=== PATIENT | male | born 1980 | race Caucasian/White ===

== ENCOUNTER 2021-03-13 10:42 | Emergency (ER) | payer SELFPAY ==
[2021-03-13 12:46] LABS: CORONAVIRUS COVID-19 NAA POSITIVE (NEGATIVE)
--- NOTE | 2021-03-13 13:40 | EDM.PDOC ---
ED HPI GENERAL MEDICAL PROBLEM - General Chief Complaint: Respiratory Problem Stated Complaint: EXPOSED TO COVID / FEELS SICK NO TEMP Time Seen by Provider: 03/13/21 11:55 Source of Information: Reports: Patient History Limitations: Reports: No Limitations - History of Present Illness INITIAL COMMENTS - FREE TEXT/NARRATIVE: onset sx W[employer] working next to coworker who tested positive day prior. Sore throat, fatigue congestion chilld - Related Data Allergies Allergy/AdvReac Type Severity Reaction Status Date / Time erythromycin base Allergy Other Verified 03/13/21 12:55 Home Meds: Home Meds Cyanocobalamin (Vitamin B-12) [Vitamin B12] 2,500 mcg PO DAILY 03/13/21 [History] Ibuprofen [Motrin] 400 mg PO QID PRN 03/13/21 [History] Solsberry-3S/DHA/Epa/Fish Oil/D3 [Fish Oil Gummies] 1 each PO DAILY 03/13/21 [History] Vit C/Ascorb Sod/Multivit-Min [Emergen-C 500 mg Chewable Tab] 500 mg PO DAILY 03/13/21 [History] Past Medical History Cardiovascular History: Reports: None Respiratory History: Reports: None Gastrointestinal History: Reports: None Genitourinary History: Reports: None Musculoskeletal History: Reports: None Neurological History: Reports: None Psychiatric History: Reports: None Endocrine/Metabolic History: Reports: None Hematologic History: Reports: None Immunologic History: Reports: None Oncologic (Cancer) History: Reports: None Dermatologic History: Reports: None - Infectious Disease History Infectious Disease History: Reports: Novel Coronavirus - Past Surgical History HEENT Surgical History: Reports: Adenoidectomy, Tonsillectomy GI Surgical History: Reports: Appendectomy Social & Family History - Family History Family Medical History: No Pertinent Family History - Tobacco Use Tobacco Use Status *Q: Never Tobacco User Second Hand Smoke Exposure: No - Caffeine Use Caffeine Use: Reports: Coffee, Energy Drinks - Recreational Drug Use Recreational Drug Use: Yes Recreational Drug Type: Reports: Marijuana/Hashish Recreational Drug Use Frequency: Daily ED ROS GENERAL - Review of Systems Review Of Systems: Comprehensive ROS is negative, except as noted in HPI. Constitutional: Reports: Chills, Malaise, Weakness, Fatigue, Decreased Appetite HEENT: Reports: No Symptoms Respiratory: Reports: No Symptoms Cardiovascular: Reports: No Symptoms GI/Abdominal: Reports: Anorexia, Nausea. Denies: Abdominal Pain : Reports: No Symptoms Musculoskeletal: Reports: Other (generalized body aches) Skin: Reports: No Symptoms Psychiatric: Reports: No Symptoms ED EXAM, GENERAL - Physical Exam Exam: See Below Exam Limited By: No Limitations General Appearance: Alert, Anxious, Mild Distress Eye Exam: Bilateral Eye: PERRL Ears: Normal External Exam, Hearing Grossly Normal Nose: Normal Inspection Throat/Mouth: Normal Inspection, Normal Oropharynx Head: Atraumatic, Normocephalic Neck: Normal Inspection Respiratory/Chest: No Respiratory Distress, Lungs Clear, Normal Breath Sounds Cardiovascular: Normal Peripheral Pulses, Regular Rate, Rhythm GI/Abdominal: Normal Bowel Sounds, Soft Back Exam: Normal Inspection Extremities: Normal Inspection, Normal Range of Motion, Non-Tender Neurological: Alert, Oriented, CN II-XII Intact, Normal Cognition, Normal Gait Psychiatric: Normal Affect, Normal Mood Skin Exam: Warm, Dry, Intact, Normal Color, No Rash Course - Vital Signs Last Recorded V/S: Last Vital Signs Temp 98.1 F 03/13/21 11:41 Pulse 76 03/13/21 11:41 Resp 20 03/13/21 11:41 BP 164/99 H 03/13/21 11:41 Pulse Ox 99 03/13/21 11:41 - Orders/Labs/Meds Labs: Laboratory Tests 03/13/21 Range/Units 11:40 Influenza Type A RNA Negative (NEGATIVE) Influenza Type B RNA Negative (NEGATIVE) SARS-CoV-2 RNA (BECKY) Positive H (NEGATIVE) Departure - Departure Time of Disposition: 13:35 Disposition: Home, Self-Care 01 Condition: Good Clinical Impression: COVID - Discharge Information *PRESCRIPTION DRUG MONITORING PROGRAM REVIEWED*: No *COPY OF PRESCRIPTION DRUG MONITORING REPORT IN PATIENT AMELIA: No Instructions: COVID-19 Frequently Asked Questions, What You Should Know About COVID-19 to Protect Yourself and Others - CDC, COVID-19: What to Do If You Are Sick- [facility] (07/08/2020) Forms: ED Department Discharge Additional Instructions: increase fluids quarantine 10-14 days good hand washing limit use of cold medications or ibuprofen If cold medication combination used look for products with HB for high blood pressure in label follow up if short of breath or difficulty breathing zofran 4mg odt one under tongue every 4 hours as needed for nausea Sepsis Event Note (ED) - Evaluation Sepsis Screening Result: No Definite Risk - Focused Exam Vital Signs: Vital Signs Temp Pulse Resp BP Pulse Ox 03/13/21 11:41 98.1 F 76 20 164/99 H 99
== END 2021-03-13 13:59 | disposition home or self-care (01) ==
LOC: DL.ED 10:42
DX: U07.1 COVID-19 (principal); Z88.1 Allergy status to other antibiotic agents
CPT/HCPCS: 0240U; 99283